=== PATIENT | female | born 1985 | race Caucasian/White ===

== ENCOUNTER → 2018-06-01 | Outpatient (CLI) | payer BC | LOC: LABNPT 15:18 | PROVIDERS: ATTEND Obstetrics & Gynecology | DX: O14.03 Mild to moderate pre-eclampsia, third trimester (principal) | CPT/HCPCS: 82570; 84156 ==

== ENCOUNTER → 2018-06-05 | Outpatient (CLI) | payer BC | LOC: LABNPT 12:23 | PROVIDERS: ATTEND Obstetrics & Gynecology | DX: O14.03 Mild to moderate pre-eclampsia, third trimester (principal) | CPT/HCPCS: 82570; 84156 ==

== ENCOUNTER 2018-06-08 14:47 | Inpatient (IN) | payer BC ==
[~2018-06-08] VITALS: Ht 165.1 cm; Wt 93.6 kg
[2018-06-08] VITALS (17 sets, daily range): BP systolic 102–156; BP diastolic 58–114
--- NOTE | 2018-06-08 14:45 | NUR ---
DIEGO HORTON presented to unit via ambulation from Dr. Posey, accompanied by mikayla. DIEGO HORTON weighed, gowned, voided, and to bed. EFHM and TOCO applied, VS taken. DIEGO HORTON oriented to bed controls, call light, TV, heat, and A/C controls.
[2018-06-08] MEDS ORDERED: D5 LR IV SOLUTION 1,000 ML IV ONE (14:57)
[2018-06-08 15:34] LABS: BASOPHILS % (AUTO) 0 % (0-10); EOSINOPHILS % (AUTO) 0 % (0-10); HEMATOCRIT 36 % (35-52); HEMOGLOBIN 12.8 G/DL (11.5-16.0); LYMPHOCYTES # (AUTO) 1.5 X 10^3 (1.0-4.0); LYMPHOCYTES % (AUTO) 16 % (12-44); MEAN CORPUSCULAR HEMOGLOBIN 32 PG (25-34); MEAN CORPUSCULAR HGB CONC 35 G/DL (32-36); MEAN CORPUSCULAR VOLUME 91 FL (80-99); MEAN PLATELET VOLUME 11.7 FL (7.4-10.4); MONOCYTES # (AUTO) 0.5 X 10^3 (0.0-1.0); MONOCYTES % (AUTO) 5 % (0-12); NEUTROPHILS % (AUTO) 78 % (42-75); PLATELET COUNT 184 10^3/uL (130-400); RED CELL DISTRIBUTION WIDTH 13.2 % (10.0-14.5)
[2018-06-08 15:54] LABS: ALANINE AMINOTRANSFERASE 17 U/L (0-55); ALBUMIN 3.2 GM/DL (3.2-4.5); ALKALINE PHOSPHATASE 172 U/L (40-136); BILIRUBIN,TOTAL 0.3 MG/DL (0.1-1.0); BUN/CREATININE RATIO 14; CALCIUM 8.7 MG/DL (8.5-10.1); CARBON DIOXIDE 16 MMOL/L (21-32); CHLORIDE 110 MMOL/L (98-107); CREATININE SERUM 0.56 MG/DL (0.60-1.30); GFR ESTIMATED > 60; GLUCOSE 100 MG/DL (70-105); SODIUM 136 MMOL/L (135-145); TOTAL PROTEIN 6.3 GM/DL (6.4-8.2); URIC ACID 4.5 MG/DL (2.6-7.2)
--- NOTE | 2018-06-08 15:56 | NUR ---
Dr. Barrow called and updated on labs. Orders rec'd for regular diet, watch overnight, decrease IV fluids.
[2018-06-08] MEDS ORDERED: D5 LR IV SOLUTION 1,000 ML IV SCH ×2 (16:00→20:30)
--- NOTE | 2018-06-08 20:39 | History & Physical ---
History and Physical Date Seen by Provider: Jun 08, 2018 Time Seen by Provider: 20:35 This patient is a 31-year-old A1 white female with an EDC of 2 319 putting her at 39-4/7 weeks' gestation. She was seen in clinic on this date found to be 5-6 cm dilated. She is having somewhat irregular contraction. She also had increased proteinuria with a urine protein creatinine ratio of 0.24. Blood pressures have been progressively elevated. She was sent directly to labor and delivery and has continued to change her cervix. She currently is between 78 cm dilated. She is selam every 2-3 minutes. She denies rupture membranes or bleeding or GBS culture was negative and she's had no problems with his to date. Allergies are none Medications are vitamins Physical exam HEENT exam is normal Neck is supple no lymphadenopathy no thyromegaly Abdomen is gravid soft nontender nondistended Extreme show no clubbing cyanosis. There is no Homans sign. Pelvic exam shows a cervix now almost 8 cm dilated 70-80 percent effaced and 0 station with a bulging bag and a vertex presentation. Amniotomy is performed with release of moderate meconium fluid. monitor shows contractions every 2-4 minutes. heart rate pattern is normal and reassuring Laboratory Tests 06/08/18 15:15 Lab work is normal Assessment and plan 39+ week gestation in advanced labor meconium fluid was noted on amniotomy. Will be prepared for sequelae to that at the time of delivery. Patient is comfortable and declined epidural. Anticipate vaginal delivery probably fairly shortly. Term at 39 weeks' gestation in labor Allergies and Home Medications Allergies Coded Allergies: No Known Drug Allergies (Unverified , 06/08/18) Patient Home Medication List Home Medication List Reviewed: Yes EVELINA MEREDITH MD Jun 08, 2018 20:39
[2018-06-08] MEDS ORDERED: OXYTOCIN/NORMAL SALINE 500 ML IV ONE (21:06)
[2018-06-08] MEDS ORDERED: LIDOCAINE/EPI 2% 1:200,00 (XYLOCAINE) 10 ML VIAL ONE (21:09)
[2018-06-08] MEDS ORDERED: OXYTOCIN/NORMAL SALINE 500 ML IV SCH (21:18)
[2018-06-09] VITALS (14 sets, daily range): BP systolic 110–154; BP diastolic 56–79
[2018-06-09] MEDS ORDERED: WITCH HAZEL(TUCKS) 40 EA JAR ONE (03:33)
[2018-06-09] MEDS ORDERED: BENZOCAINE/MENTHOL (DERMOPLAST) 56 ML CAN TP ONE (03:33)
[2018-06-09] MEDS ORDERED: IBUPROFEN 800 MG (MOTRIN) TAB PO ONE ×4 (03:33→22:22)
[2018-06-09] MEDS ORDERED: OXYTOCIN/NORMAL SALINE 500 ML IV SCH (03:51)
[2018-06-09] MEDS ORDERED: MEASLES,MUMPS,RUBELLA 1 EA INJ SC ONE (04:00)
[2018-06-09] MEDS ORDERED: BENZOCAINE/MENTHOL (DERMOPLAST) 56 ML CAN TP PRN (04:00)
[2018-06-09] MEDS ORDERED: KETOROLAC 30 MG/ML VIAL IV SCH (04:00)
[2018-06-09] MEDS ORDERED: ONDANSETRON 4 MG/2 ML (SDV) Z0FRAN IVP PRN (04:00)
[2018-06-09] MEDS ORDERED: TETANUS,DIPTH,PERTUSS P/F (BOOSTRIX) 0.5 ML VIAL IM ONE (04:00)
[2018-06-09] MEDS ORDERED: oxyCODONE/APAP 5/325MG (PERCOCET 5) TABLET PO PRN (04:00)
--- NOTE | 2018-06-09 04:44 | OPERATIVE REPORT ---
DATE OF SERVICE: 06/09/2018 DELIVERY NOTE The patient delivered by term spontaneous vaginal delivery of a viable male infant with Apgars of 8 and 9 at 1 and 5 minutes respectively, weight of 9 pounds and 10 ounces. time of 0002 and a cord blood gas pH that is pending. The delivered over an intact perineum under local analgesia in the perineum only. There was a nuchal cord x1 that was easily released after delivery of the head. On delivery of the head, the infant was bulb suctioned and then bulb suctioned was repeated on completion of delivery. The had spontaneous cry, moved all extremities, had excellent tone and reflexes and the heart rate was over 100 throughout the delivery. The umbilical cord was doubly clamped, father cut the cord, the baby was passed to mom's abdomen. The placenta delivered spontaneously Dave. It was quite large, but otherwise normal and did have a 3-vessel cord. The placenta was sent to pathology for permanent section. The cervix, vagina, rectum and perineum were examined and found intact, except for a very mild superficial abrasion in the posterior vaginal floor and a small rent in the hymenal ring at about the 9 o'clock position. Both of those areas were hemostatic and no repair was required. Sponge and needle counts were correct on completion of the delivery. The mom remained in the LDR for recovery. The baby remained with the mom. Estimated blood loss was around 200 mL. The patient tolerated the procedure well. Job ID: [id number] DocumentID: [id number] Dictated Date: 06/09/2018 00:23:10 Silviculture Forester Date: 06/09/2018 04:44:10 Dictated By: EVELINA MEREDITH MD
[2018-06-09] MEDS: IBUPROFEN 800 MG (MOTRIN) TAB PO SCH ×4 (07:42→22:33)
--- NOTE | 2018-06-09 07:43 | Progress Note-Standard ---
Standard Progress Note Progress Notes/Assess & Plan Date Seen by a Provider: Jun 09, 2018 Time Seen by a Provider: 07:41 Progress/Assessment & Plan This patient is without complaint. She is ambulating, voiding, tolerating oral intake well has good pain control. Vital Signs 06/09/18 04:00 Temp 98.7 Pulse 73 Resp 18 B/P (MAP) 136/65 (88) Pulse Ox 98 O2 Delivery Room Air Vital signs are stable. Patient is afebrile. Fundus is firm below the umbilicus nontender. Ladarius show no clubbing or cyanosis. There is no Homans sign. Assessment and plan post day number 1 status post term spontaneous vaginal delivery doing well. Plan is for routine convalescence CARE. EVELINA MEREDITH MD Jun 09, 2018 07:42
--- NOTE | 2018-06-09 08:30 | NUR ---
Pt assisted up to bathroom, + void. Pericare performed and assisted per RN. Significant hemorrhoids noted, tucks pads applied to perineum. Will obtain order for nupercainal cream.
[2018-06-09] MEDS ORDERED: DIBUCAINE (NUPERCAINAL) 1% OINT 30 GM TOP PRN (09:00)
[2018-06-09] MEDS: DOCUSATE SODIUM 100 MG (COLACE) CAP PO SCH ×2 (09:08→20:33)
--- NOTE | 2018-06-09 15:45 | NUR ---
Dr. Barrow on unit to see pt. Pt reports feeling SOA when ambulating. Orders to check Spo2, pulse with next ambulation.
--- NOTE | 2018-06-09 18:30 | NUR ---
Pt up ambulating to bathroom, +void and stool noted. Spo2 100%, pulse 115 when up, Spo2 100%, pulse 78 when back in bed resting. Pt verbalizes SOA wasn't as bad this time. Will report information to next shift.
[2018-06-10 02:00] VITALS: BP 113/73
[2018-06-10] MEDS: IBUPROFEN 800 MG (MOTRIN) TAB PO SCH ×2 (04:46→11:42)
[2018-06-10 08:40] VITALS: BP 125/83
[2018-06-10] MEDS: DOCUSATE SODIUM 100 MG (COLACE) CAP PO SCH (08:47)
--- NOTE | 2018-06-10 10:30 | Progress Note-Standard ---
Standard Progress Note Progress Notes/Assess & Plan Date Seen by a Provider: Jun 10, 2018 Time Seen by a Provider: 10:29 Progress/Assessment & Plan This patient is without complaint. She is ambulating, voiding, tolerating oral intake well has good pain control. Vital Signs 06/09/18 04:00 Temp 98.7 Pulse 73 Resp 18 B/P (MAP) 136/65 (88) Pulse Ox 98 O2 Delivery Room Air Vital signs are stable. Patient is afebrile. Fundus is firm below the umbilicus nontender. Ladarius show no clubbing or cyanosis. There is no Homans sign. Assessment and plan post day number 1 status post term spontaneous vaginal delivery doing well. Plan is for routine convalescence CARE. June 10, 2018 Patient without complaint. She is ablating, voiding, tolerating oral intake well has good pain control. Patient is requesting discharge home. Vital signs are stable. Patient is afebrile. Vital Signs 06/10/18 06/10/18 02:00 08:40 Temp 97.9 Pulse 95 Resp 20 B/P (MAP) 125/83 (97) Pulse Ox 99 O2 Delivery Room Air Fundus is firm below the umbilicus and nontender. Extremities show clubbing cyanosis. There is no Homans sign. Assessment and plan day number 2 status post term spontaneous vaginal delivery doing well. Plan is for discharge home with follow-up in clinic Final Diagnosis 39+ week spontaneous vaginal delivery EVELINA MEREDITH MD Jun 10, 2018 10:30
[2018-06-10] MEDS ORDERED: DOCU100C37 PO (10:32)
[2018-06-10] MEDS ORDERED: OXYC1TAB87 PO (10:32)
[2018-06-10] MEDS ORDERED: IBUP-1780 PO (10:32)
--- NOTE | 2018-06-10 10:32 | Discharge Instructions ---
Discharge Instructions Discharge Medications New, Converted or Re-Newed RX: RX on Chart Patient Instructions Patient Instructions: As directed Return to The Hospital For: As directly Activity & Diet Discharge Diet: No Restrictions Activity as Tolerated: No Orders-Post D/C & Referrals Follow Up Appt: Call to make follow up appt. for patient in 4 weeks. Activity Per routine post vaginal delivery instructions. Diet as tolerated Patient may shower or tub bathe as desired. EVELINA MEREDITH MD Jun 10, 2018 10:32
--- NOTE | 2018-06-10 14:10 | NUR ---
DIEGO HORTON demonstrates understanding of discharge instructions and accurately returns instructions upon questioning. Copy of Post-Discharge Instructions and Medication Discharge Instructions given to patient. DIEGO HORTON is able to manage continuing needs after discharge. Patients belongings returned to patient. Skin dry and intact; no breakdown noted. Patient discharged from 3311-1 on 06-10-18 at 1410. DIEGO HORTON left floor via ambulation, accompanied by staff and .
== END 2018-06-10 14:10 | disposition home or self-care (01) | DRG 807 ==
LOC: LDRP 14:47
PROVIDERS: ADMIT Obstetrics & Gynecology; ATTEND Obstetrics & Gynecology
PROC: 10E0XZZ Delivery of Products of Conception, External Approach (ICD-10-PCS; principal; 2018-06-09)
DX: O77.0 Labor and delivery complicated by meconium in amniotic fluid (principal); O69.81X0 Labor and delivery complicated by cord around neck, without compression, not applicable or unspecified; Z3A.39 39 weeks gestation of pregnancy; Z37.0 Single live birth
CPT/HCPCS: 36415; 80053; 82570; 83615; 84156; 84550; 85025

== ENCOUNTER 2021-10-16 06:50 | Inpatient (IN) | payer BC, OTHER ==
[~2021-10-16] VITALS: Ht 167 cm; Wt 90.0 kg
[2021-10-16] VITALS (30 sets, daily range): BP systolic 113–144; BP diastolic 61–86
[~2021-10-16 06:50] MED LIST: DOCU100C37 PO; IBUP-1780 PO; OXYC1TAB87 PO
[2021-10-16 08:21] LABS: BASOPHILS % (AUTO) 0 % (0-10); EOSINOPHILS # (AUTO) 0.1 10^3/uL (0.0-0.3); EOSINOPHILS % (AUTO) 1 % (0-10); HEMATOCRIT 33 % (35-52); HEMOGLOBIN 11.7 g/dL (11.5-16.0); LYMPHOCYTES # (AUTO) 1.4 10^3/uL (1.0-4.0); LYMPHOCYTES % (AUTO) 16 % (12-44); MEAN CORPUSCULAR HEMOGLOBIN 33 pg (25-34); MEAN CORPUSCULAR HGB CONC 36 g/dL (32-36); MEAN CORPUSCULAR VOLUME 92 fL (80-99); MEAN PLATELET VOLUME 10.7 fL (9.0-12.2); MONOCYTES # (AUTO) 0.4 10^3/uL (0.0-1.0); MONOCYTES % (AUTO) 5 % (0-12); NEUTROPHILS # (AUTO) 6.6 10^3/uL (1.8-7.8); NEUTROPHILS % (AUTO) 75 % (42-75); PLATELET COUNT 177 10^3/uL (130-400); WHITE BLOOD COUNT 8.8 10^3/uL (4.3-11.0)
--- NOTE | 2021-10-16 08:39 | History & Physical ---
History and Physical Date Seen by Provider: Oct 16, 2021 Time Seen by Provider: 08:38 This patient is a 35-year-old 3 para 2 female presents presents now 39 weeks gestation for induction of labor. Her has been uncomplicated. She does have a history of very rapid labors with quick deliveries. Her GBS culture was negative. She denies rupture membranes or bleeding. She has had no problems with this . Allergies are none Medications are vitamins Medical social and surgical histories are per the antepartum record HEENT exam is normal Neck is supple no lymphadenopathy no thyromegaly Abdomen is gravid soft nontender nondistended Extremities show no clubbing cyanosis. No Homans' sign. Pelvic exam is pending Assessment and plan 39 weeks gestation and uncomplicated and multigravid elderly patient. Plans for induction of labor anticipate vaginal 39-week gestation admitted for induction of labor Allergies and Home Medications Allergies Coded Allergies: No Known Drug Allergies (Unverified , 06/08/18) Patient Home Medication List Home Medication List Reviewed: Yes Docusate Sodium (Docusate Sodium) 100 Mg Capsule, 100 MG PO BID Prescribed by: EVELINA LUJAN on 06/10/18 1032 Ibuprofen (Ibuprofen) 800 Mg Tablet, 800 MG PO Q6H Prescribed by: EVELINA LUJAN on 06/10/18 1032 Oxycodone HCl/Acetaminophen (Percocet 5-325 mg Tablet) 1 Each Tablet, 1 TAB PO Q4H PRN for PAIN-MODERATE Prescribed by: EVELINA LUJAN on 06/10/18 1032 EVELINA MEREDITH MD Oct 16, 2021 08:39
--- NOTE | 2021-10-16 08:44 | Discharge Inst-Surgical ---
Discharge Inst-Surgical Depart Medication/Instructions New, Converted or Re-Newed RX: Transmitted to Pharmacy Consults/Follow Up Patient Instructions: As directed Orders & Referrals Follow Up Appt: Call to make follow up appt. for patient in 4 weeks. Activity Per routine post vaginal delivery instructions. Prescriptions have been transmitted to pharmacy Diet as tolerated Patient may shower or tub bathe as desired. Activity Activity as Tolerated: No Diet Discharge Diet: No Restrictions EVELINA MEREDITH MD Oct 16, 2021 08:44
[2021-10-16] MEDS ORDERED: OXYTOCIN PRE-MIX DRIP 500 ML IV SCH ×2 (08:45→16:15)
[2021-10-16] MEDS ORDERED: D5 LR IV SOLUTION 1,000 ML IV SCH (08:45)
[2021-10-16] MEDS ORDERED: DOCU100C37 PO (08:45)
[2021-10-16] MEDS ORDERED: IBUP-1780 PO (08:45)
[2021-10-16] MEDS: D5 LR IV SOLUTION 1,000 ML IV SCH ×2 (08:51→14:43)
[2021-10-16] MEDS: OXYTOCIN PRE-MIX DRIP 500 ML IV SCH ×2 (08:51→10:07)
[2021-10-16] MEDS ORDERED: LIDOCAINE/EPI 2% 1:200,00 (XYLOCAINE) 10 ML VIAL ONE ×2 (14:12)
[2021-10-16] MEDS ORDERED: ONDANSETRON 4 MG/2 ML (SDV) Z0FRAN ONE (15:16)
[2021-10-16] MEDS ORDERED: ONDANSETRON 4 MG/2 ML (SDV) Z0FRAN IVP ONE (15:30)
[2021-10-16] MEDS ORDERED: oxyCODONE/APAP 5/325MG (PERCOCET 5) TABLET PO PRN (16:15)
[2021-10-16] MEDS ORDERED: ONDANSETRON 4 MG/2 ML (SDV) Z0FRAN IVP PRN (16:15)
[2021-10-16] MEDS ORDERED: BENZOCAINE/MENTHOL (DERMOPLAST) 56 ML CAN TP PRN (16:15)
[2021-10-16] MEDS ORDERED: TETANUS,DIPTH,PERTUSS P/F (BOOSTRIX) 0.5 ML VIAL IM ONE (16:15)
[2021-10-16] MEDS ORDERED: PREN-172 PO (16:22)
[2021-10-16] MEDS ORDERED: FLUT9.9S NS (16:22)
[2021-10-16] MEDS ORDERED: CETI10TA49 PO (16:22)
[2021-10-16] MEDS: KETOROLAC 30 MG/ML VIAL IVP SCH ×2 (16:39→23:20)
[2021-10-16] MEDS ORDERED: IBUPROFEN 800 MG (MOTRIN) TAB PO SCH (18:00)
[2021-10-16] MEDS ORDERED: WITCH HAZEL(TUCKS) 40 EA JAR TOP PRN (18:00)
[2021-10-16] MEDS: DOCUSATE SODIUM 100 MG (COLACE) CAP PO SCH (23:20)
--- NOTE | 2021-10-17 02:09 | OPERATIVE REPORT ---
DATE OF SERVICE: 10/16/2021 DELIVERY NOTE The patient delivered by term spontaneous vaginal delivery a viable female infant with Apgars of 9 and 9 at 1 and 5 minutes respectively. Weight that is 7 pounds 2 ounces, cord blood pH is 7.3+ and a time of 1837. The infant was bulb suctioned on delivery of the head and again on completion of delivery. Umbilical cord when pulseless was doubly clamped, the father cut the cord, the baby was passed to mom's abdomen. Placenta delivered fairly promptly spontaneously Dave. It was normal with a 3-vessel cord. The cervix, vagina, rectum, and perineum were examined and found to be intact. Sponge and needle counts were correct on completion of the delivery. The patient tolerated the delivery well and remained in the LDR. Blood loss was around 200 mL. Job ID: [id number] DocumentID: [id number] Dictated Date: 10/16/2021 15:58:51 Procurement Analyst Date: 10/17/2021 02:08:39 Dictated By: EVELINA MEREDITH MD MTDD
[2021-10-17 03:07] VITALS: BP 121/61
[2021-10-17] MEDS: KETOROLAC 30 MG/ML VIAL IVP SCH (05:05)
[2021-10-17 08:30] VITALS: BP 121/72
[2021-10-17] MEDS: DOCUSATE SODIUM 100 MG (COLACE) CAP PO SCH (08:31)
[2021-10-17] MEDS ORDERED: MEASLES,MUMPS,RUBELLA 1 EA INJ SC ONE (09:15)
--- NOTE | 2021-10-17 09:33 | Progress Note ---
Standard Progress Note Progress Notes/Assess & Plan Date Seen by a Provider: Oct 17, 2021 Time Seen by a Provider: 09:32 Progress/Assessment & Plan This patient is without complaint. She is ambulating, voiding, tolerating oral intake and has good pain control. Vital Signs Date Time Temp Pulse Resp B/P (MAP) Pulse Ox O2 Delivery O2 Flow Rate FiO2 10/17/21 03:07 36.0 78 18 121/61 (81) 99 10/16/21 23:20 36.2 77 18 124/70 (88) 98 10/16/21 19:45 36.5 77 18 117/78 (91) 97 10/16/21 16:57 68 18 125/67 (86) Room Air 10/16/21 16:42 62 18 134/70 (91) Room Air 10/16/21 16:27 63 18 126/68 (87) Room Air 10/16/21 16:14 67 18 137/63 (87) Room Air 10/16/21 15:57 72 137/69 (91) Room Air 10/16/21 15:42 36.8 77 18 136/66 (89) Room Air 10/16/21 15:30 65 18 137/73 (94) Room Air 10/16/21 15:15 10/16/21 15:00 76 18 144/69 (94) Room Air 10/16/21 14:45 82 18 136/83 (100) Room Air 10/16/21 14:30 75 18 119/61 (80) Room Air 10/16/21 14:15 77 18 113/64 (80) Room Air 10/16/21 14:00 78 18 115/62 (79) Room Air 10/16/21 13:45 85 18 119/74 (89) Room Air 10/16/21 13:30 88 18 118/77 (91) Room Air 10/16/21 13:15 36.2 84 18 130/76 (94) Room Air 10/16/21 13:00 87 18 136/79 (98) Room Air 10/16/21 12:45 82 18 127/78 (94) Room Air 10/16/21 12:30 Room Air 10/16/21 12:15 88 18 129/75 (93) Room Air 10/16/21 12:00 79 18 130/77 (94) Room Air 10/16/21 11:45 97 18 128/80 (96) Room Air 10/16/21 11:30 85 18 125/71 (89) Room Air 10/16/21 11:15 89 18 132/82 (99) Room Air 10/16/21 11:00 86 18 131/86 (101) Room Air 10/16/21 10:45 93 18 126/83 (97) Room Air 10/16/21 10:30 36.1 89 18 124/79 (94) Room Air 10/16/21 10:15 89 18 128/80 (96) Room Air 10/16/21 10:00 88 18 126/79 (95) Room Air I & O 10/17/21 07:00 Intake Total 1000 ml Balance 1000 ml Vital signs are stable. Patient is afebrile. Fundus is firm below the umbilicus and nontender. Extremities show no clubbing or cyanosis. There is no Homans' sign. Pelvic exam was deferred Assessment and plan day #1 status post term spontaneous vaginal livery at 39 weeks gestation. Plan is for routine convalescent care with discharge home today or tomorrow as patient prefers Final Diagnosis 39-week spontaneous vaginal delivery EVELINA MEREDITH MD Oct 17, 2021 09:33
[2021-10-17 12:15] VITALS: BP 129/75
[2021-10-17] MEDS: IBUPROFEN 800 MG (MOTRIN) TAB PO SCH ×2 (12:26→18:04)
[2021-10-17 17:15] VITALS: BP 130/84
== END 2021-10-17 19:15 | disposition home or self-care (01) | DRG 807 ==
LOC: LDRP 06:50
PROVIDERS: ADMIT Obstetrics & Gynecology; ATTEND Obstetrics & Gynecology
PROC: 10E0XZZ Delivery of Products of Conception, External Approach (ICD-10-PCS; principal; 2021-10-16)
PROC: 3E033VJ Introduction of Other Hormone into Peripheral Vein, Percutaneous Approach (ICD-10-PCS; 2021-10-16)
DX: O80 Encounter for full-term uncomplicated delivery (principal); Z37.0 Single live birth; Z3A.39 39 weeks gestation of pregnancy; Z23 Encounter for immunization; Z28.310 Unvaccinated for COVID-19
CPT/HCPCS: 36415; 82570; 84156; 85025; 86850; 86900; 86901; 90707